=== PATIENT | male | born 2005 | race Caucasian/White ===

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

== ENCOUNTER → 2025-03-12 14:55 | Outpatient (BNVA) | payer OTHER, SELFPAY | PROVIDERS: PCP Family Medicine; Visit Provider Family Medicine | DX: M13.0 Polyarthritis, unspecified (principal) | CPT/HCPCS: 80053; 85025; 85651; 86140; 86160; 86162; 86200; 86235; 86255; 86376; 86431; 86812 ==

== ENCOUNTER → 2025-04-03 10:46 | Outpatient (BNVA) | payer OTHER, SELFPAY | PROVIDERS: PCP Family Medicine; Visit Provider Family Medicine | DX: M13.0 Polyarthritis, unspecified (principal) | CPT/HCPCS: 80503; 85025 ==

== ENCOUNTER 2025-05-26 08:27 | Outpatient (CLI) | payer OTHER, SELFPAY ==
[2025-05-27 03:54] LABS: SS A Ro Sjogrens Antibody <1.0 NEG AI (<1.0 NEG)
[2025-05-27 05:55] LABS: COMPLEMENT COMPONENT C3C 128 mg/dL (82-185); COMPLEMENT COMPONENT C4C 21 mg/dL (15-53)
[2025-05-27 09:30] LABS: CENTROMERE B ANTIBODY <1.0 NEG AI (<1.0 NEG); JO-1 ANTIBODY <1.0 NEG AI (<1.0 NEG); RNP ANTIBODY <1.0 NEG AI (<1.0 NEG); SCL-70 ANTIBODY <1.0 NEG AI (<1.0 NEG); SS-B <1.0 NEG AI (<1.0 NEG); SS-B/LA IGG <1.0 NEG AI (<1.0 NEG)
[2025-05-27 13:19] LABS: COMPLEMENT, TOTAL (CH50) 47 U/mL (31-60)
[2025-05-28 01:54] LABS: HLA-B27 NEGATIVE (NEGATIVE)
[2025-05-28 03:40] LABS: Anti-Double Strand DNA AB 1 IU/mL
== END 2025-05-26 08:28 | disposition home or self-care (01) ==
PROVIDERS: PCP Family Medicine; Visit Provider Family Medicine
DX: M13.0 Polyarthritis, unspecified (principal)
CPT/HCPCS: 36415; 85651; 86160; 86162; 86225; 86235; 86255; 86376; 86812